=== PATIENT | male | born 1940 | race Two or more races ===

== ENCOUNTER → 2017-09-20 | Outpatient (CLI) | payer OTHER | END | disposition home or self-care (01) | LOC: EDBD 09:55 → SONOGRAMA 09:55 | DX: N40.0 Benign prostatic hyperplasia without lower urinary tract symptoms (principal); R30.0 Dysuria; Z12.11 Encounter for screening for malignant neoplasm of colon; E78.1 Pure hyperglyceridemia; Z12.5 Encounter for screening for malignant neoplasm of prostate; Z00.00 Encounter for general adult medical examination without abnormal findings; E55.9 Vitamin D deficiency, unspecified ==

== ENCOUNTER 2023-10-05 21:37 | Inpatient (IN) | payer OTHER ==
[~2023-10-05] VITALS: Ht 170.2 cm; Wt 62.1 kg
[~2023-10-05 21:37] MED LIST: ELIQUIS5 MG PO; TOPROL XL25 M1 PO
[2023-10-05] MEDS ORDERED: 0.9 % SODIUM CHLORIDE 1,000 ML IV SCH (22:15)
[2023-10-05 23:07] LABS: HEMATOCRIT 37.3 % (39.0-48.0); HEMOGLOBIN 12.7 g/dL (13-16.00); MEAN CELL VOLUME 97.1 fL (80.0-100.00); MEAN CORPUSCULAR HGB CONC 33.9 g/dl (32.0-36.0); PLATELET COUNT 161 K/uL (150-450); RED BLOOD COUNT 3.84 M/uL (4.00-6.00); RED CELL DISTRIBUTION WIDTH 15.9 % (11.5-14.5)
[2023-10-05 23:26] LABS: INR 1.1; PARTIAL THROMBOPLASTIN TIME 26.9 SECONDS (22.0-34.0); PROTHROMBIN TIME 11.5 SECONDS (9.0-11.5)
[2023-10-05 23:58] LABS: PH,URINE 5.5 (5.0-8.0); URINE APPEARANCE Cloudy; URINE BILIRRUBIN Small (NEGATIVE); URINE BLOOD Large; URINE COLOR Dark Yellow; URINE GLUCOSE Negative (NEGATIVE); URINE LEUKOCYTE Trace; URINE NITRATE Negative; URINE PROTEIN 30 (NEGATIVE)
[2023-10-06 00:02] LABS: URINE EPITHELIAL CELLS 24.4 uL (0.0-38.8); URINE RBC 2594.9 uL (0.0-20.8); URINE WBC 40.8 uL (0.0-23.2)
[2023-10-06 00:54] LABS: ALBUMIN 2.6 gm/dL (3.4-5.0); BILIRUBIN TOTAL 0.44 mg/dL (0.3-1.2); CREATININE SERUM 0.57 mg/dL (0.70-1.30); GFR 136.85; GLOBULINA 3.6 G/DL (2.4-3.5); POTASSIUM 4.24 mEq/L (3.5-5.1); TOTAL PROTEIN 6.2 gm/dL (6.4-8.2)
[2023-10-06 00:58] LABS: URINE CRYSTALS MODERATE /HPF
[2023-10-06] MEDS ORDERED: CEFTRIAXONE SODIUM 1,000 MG VIAL IV STA (10:56)
[2023-10-06] MEDS ORDERED: AZITHROMYCIN 500 MG VIAL IV STA (10:56)
[2023-10-06] MEDS ORDERED: GUAIFENESIN 200 MG/10 ML BLIST.PACK PO SCH (12:00)
[2023-10-06] MEDS ORDERED: IPRATROPIUM/ALBUTEROL SULFATE 3 ML AMPUL.NEB IH SCH (13:00)
[2023-10-06] MEDS ORDERED: METHYLPREDNISOLONE SOD SUCC 40 MG VIAL IV SCH (17:00)
[2023-10-06] MEDS ORDERED: APIXABAN 5 MG TABLET PO SCH (21:00)
[2023-10-06] MEDS ORDERED: HALOPERIDOL LACTATE 5 MG/ML AMPUL IM ONE (22:00)
[2023-10-07] MEDS ORDERED: AZITHROMYCIN 500 MG VIAL IV SCH (09:00)
[2023-10-07] MEDS ORDERED: METHYLPREDNISOLONE SOD SUCC 40 MG VIAL IV SCH (09:00)
[2023-10-07] MEDS ORDERED: CEFTRIAXONE SODIUM 1,000 MG VIAL IV SCH (09:00)
[2023-10-07] MEDS ORDERED: APIXABAN 5 MG TABLET PO SCH (09:00)
[2023-10-07] MEDS ORDERED: METOPROLOL TARTRATE 25 MG TABLET PO SCH (09:00)
[2023-10-07] MEDS ORDERED: RIVASTIGMINE1 EACH (10:16)
[2023-10-07] MEDS ORDERED: TRAZODONE HCL100 MG (10:16)
[2023-10-07] MEDS ORDERED: BUSPIRONE HCL5 MG (10:16)
[2023-10-07] MEDS ORDERED: IPRATROPIUM/ALBUTEROL SULFATE 3 ML AMPUL.NEB IH SCH (12:00)
[2023-10-08] MEDS ORDERED: METHYLPREDNISOLONE SOD SUCC 40 MG VIAL IV SCH (21:00)
[2023-10-08] MEDS ORDERED: FUROsemide 20 MG/2 ML VIAL IV SCH (21:00)
[2023-10-09] MEDS ORDERED: HALOPERIDOL LACTATE 5 MG/ML AMPUL IM PRN (07:15)
[2023-10-10 11:04] LABS: ABG PH 7.522 (7.35-7.45); ABG pCO2 32.4 mmHg (35-45)
[2023-10-10 11:05] LABS: BASE EXCESS 3.7 mmol/l; BICARBONATE 25.9 mmol/l (23-25); SaO2 97.5 %; Tco2 26.9 mmol/l; o2 21 %
[2023-10-10 11:06] LABS: allen test SATISFACTORY; puncture site RADIAL LEFT
== END 2023-10-10 11:23 | disposition home or self-care (01) | DRG 202 ==
LOC: ER 21:37 → SEC-K 10-06 11:04 → SURG 10-06 11:04
PROVIDERS: General Practice; Internal Medicine Critical Care Medicine; ADMIT Internal Medicine; ATTEND Internal Medicine
PROC: B020ZZZ Computerized Tomography (CT Scan) of Brain (ICD-10-PCS; principal; 2023-10-05)
DX: J40 Bronchitis, not specified as acute or chronic (principal); J81.1 Chronic pulmonary edema; I95.9 Hypotension, unspecified; I50.9 Heart failure, unspecified; R31.9 Hematuria, unspecified; F03.90 Unspecified dementia, unspecified severity, without behavioral disturbance, psychotic disturbance, mood disturbance, and anxiety

== ENCOUNTER → 2024-09-01 | Emergency (ER) | payer OTHER ==
[~2024-09-01] VITALS: Ht 170.2 cm; Wt 72.6 kg
[~2024-09-01] MED LIST changes: +BUSPIRONE HCL5 MG; +MEMANTINE HCL E14 MG PO; +RIVASTIGMINE1 EACH; +TRAZODONE HCL100 MG
== END | disposition home or self-care (01) ==
LOC: ER 07:33
DX: F41.9 Anxiety disorder, unspecified (principal); G30.9 Alzheimer's disease, unspecified; F02.80 Dementia in other diseases classified elsewhere, unspecified severity, without behavioral disturbance, psychotic disturbance, mood disturbance, and anxiety; I10 Essential (primary) hypertension

== ENCOUNTER 2024-09-06 15:09 | Emergency (ER) | payer OTHER ==
[~2024-09-06] VITALS: Ht 157.5 cm; Wt 63.5 kg
[2024-09-06 15:27] VITALS: BP 110/70; O2SAT 96
[2024-09-06 17:02] LABS: BASO % 0.5 % (0.1-1.2); EOS # 0.03 (0.04-0.54); EOS % 0.5 % (0.7-7.0); HEMATOCRIT 39.4 % (40.1-51.0); LYMPH # 2.25 (1.18-3.74); LYMPH % 34.3 % (19.3-53.1); MEAN CORPUSCULAR HEMOGLOBIN 27.6 pg (25.6-32.2); MONO # 0.81 (0.24-0.82); NEUT # 3.43 (1.56-6.13); NEUT % 52.2 % (34.0-71.1); PLATELET COUNT 148 K/uL (163-369); RED BLOOD COUNT 4.71 M/uL (4.63-6.08); RED CELL DISTRIBUTION WIDTH 16.9 % (11.6-14.4)
[2024-09-06 17:04] LABS: MONO % 12.3 % (4.7-12.5)
[2024-09-06 17:44] LABS: INR 1.5; PARTIAL THROMBOPLASTIN TIME 30.2 SECONDS (22.0-34.0)
[2024-09-06 17:46] LABS: ALBUMIN 2.7 gm/dL (3.4-5.0); BILIRUBIN TOTAL 0.96 mg/dL (0.3-1.2); CALCIUM 8.4 mg/dL (8.5-10.1); CREATININE SERUM 0.93 mg/dL (0.70-1.30); GFR 77.59; GLOBULINA 4.6 G/DL (2.4-3.5); POTASSIUM 4.57 mEq/L (3.5-5.1); PROTHROMBIN TIME 15.9 SECONDS (9.0-11.5); TOTAL PROTEIN 7.3 gm/dL (6.4-8.2)
[2024-09-06 18:09] LABS: URINE APPEARANCE Turbid; URINE BILIRRUBIN Negative (NEGATIVE); URINE BLOOD Moderate; URINE COLOR Dark Yellow; URINE GLUCOSE Negative (NEGATIVE); URINE KETONE Negative (NEGATIVE); URINE LEUKOCYTE Large; URINE NITRATE Positive
[2024-09-06 18:14] LABS: URINE EPITHELIAL CELLS 1.5 uL (0.0-38.8); URINE RBC 29.6 uL (0.0-20.8)
[2024-09-06 18:15] LABS: URINE BACTERIA > 9821.5 uL (0.0-1933); URINE CAST 0.29 uL (0.0-1.40); URINE PROTEIN 100 (NEGATIVE); URINE WBC > 5548.3 uL (0.0-23.2)
[2024-09-06] MEDS ORDERED: PIPERACILLIN/TAZOBACTAM SODIUM 3.375 GM VIAL IV ONE ×2 (18:45→19:04)
[2024-09-06] MEDS ORDERED: FAMOtidine 10 MG/ML (4ML VIAL) IV ONE (18:45)
[2024-09-06] MEDS ORDERED: FAMOTIDINE/PF 20 MG/2 ML VIAL ONE (19:04)
[2024-09-06] MEDS ORDERED: BACTRIM DS TAB1 EACH PO (19:33)
[2024-09-06] MEDS ORDERED: PEPCID AC20 MG PO (19:33)
[2024-09-06] MEDS ORDERED: TAMS0.4C PO (19:33)
== END 2024-09-06 20:03 | disposition home or self-care (01) ==
LOC: ER 15:09
PROVIDERS: General Practice
DX: R41.0 Disorientation, unspecified (principal); R53.1 Weakness; I10 Essential (primary) hypertension
CPT/HCPCS: 36415; 70450; 71045; 93005; 96365; 99284; J2543; J3490

== ENCOUNTER 2024-12-22 13:28 | Emergency (ER) | payer OTHER ==
[~2024-12-22] VITALS: Ht 162.6 cm; Wt 69.9 kg
[~2024-12-22 13:28] MED LIST changes: +BACTRIM DS TAB1 EACH PO; +PEPCID AC20 MG PO; +TAMS0.4C PO
[2024-12-22 16:06] LABS: BASO % 0.8 % (0.1-1.2); EOS # 0.17 (0.04-0.54); EOS % 2.0 % (0.7-7.0); LYMPH # 3.41 (1.18-3.74); LYMPH % 39.7 % (19.3-53.1); MEAN PLATELET VOLUME 10.40 fl (9.4-12.4); MONO # 0.98 (0.24-0.82); MONO % 11.4 % (4.7-12.5); NEUT # 3.95 (1.56-6.13); NEUT % 45.9 % (34.0-71.1); RED CELL DISTRIBUTION WIDTH 15.8 % (11.6-14.4)
[2024-12-22 16:35] LABS: COVID-19 AG NEGATIVE (NEGATIVE)
[2024-12-22 16:48] LABS: ALT/SGPT 12.0 U/L (12-78); AST/SGOT 26.0 U/L (15-37); BILIRUBIN TOTAL 0.86 mg/dL (0.3-1.2); BUN CREA RATIO 23.0 (7.0-25.0); CREATININE SERUM 0.98 mg/dL (0.70-1.30); GFR 73.04; GLOBULINA 4.6 G/DL (2.4-3.5); GLUCOSE FASTING 103.0 mg/dL (65-100); OSMOLALITY SERUM 276.0 MOSM/KG (275-295)
[2024-12-22 17:15] LABS: URINE APPEARANCE Cloudy; URINE BILIRRUBIN Negative (NEGATIVE); URINE BLOOD Moderate; URINE COLOR Dark Yellow; URINE GLUCOSE Negative (NEGATIVE); URINE KETONE Trace (NEGATIVE); URINE LEUKOCYTE Moderate; URINE NITRATE Negative; URINE PROTEIN 30 (NEGATIVE); URINE UROBILINOGEN 1.0 E.U./dl
[2024-12-22 17:21] LABS: URINE BACTERIA 314.3 uL (0.0-1933); URINE EPITHELIAL CELLS 12.3 uL (0.0-38.8); URINE RBC 226.8 uL (0.0-20.8); URINE WBC 1038.2 uL (0.0-23.2)
[2024-12-22 17:42] LABS: URINE CAST 0.29 uL (0.0-1.40)
[2024-12-22] MEDS ORDERED: MUPIROCIN15 GM TOP (18:34)
[2024-12-22] MEDS ORDERED: CEFDINIR300 MG PO (18:34)
== END 2024-12-22 21:03 ==
LOC: ER 13:28
PROVIDERS: General Practice
DX: L73.8 Other specified follicular disorders (principal); J44.9 Chronic obstructive pulmonary disease, unspecified; N39.0 Urinary tract infection, site not specified; Z20.822 Contact with and (suspected) exposure to COVID-19; I10 Essential (primary) hypertension; F03.90 Unspecified dementia, unspecified severity, without behavioral disturbance, psychotic disturbance, mood disturbance, and anxiety